=== PATIENT | male | born 1970 | race African-American/Black ===

== ENCOUNTER 2019-08-12 12:02 | Emergency (ER) | payer MEDICAID, OTHER ==
[~2019-08-12] VITALS: Ht 162.6 cm; Wt 60.0 kg
[2019-08-12] MEDS ORDERED: SODIUM CHLORIDE 0.9% 1,000 ML IV NR (14:30)
[2019-08-12 14:33] VITALS: BP 103/67
[2019-08-12] MEDS: KETOROLAC 15MG/ML VIAL IV NR ×2 (14:52→14:53)
== END 2019-08-12 14:59 | disposition home or self-care (01) ==
LOC: ER 12:02
DX: J06.9 Acute upper respiratory infection, unspecified (principal)
CPT/HCPCS: 71045; 96374; 99283; J1885

== ENCOUNTER 2020-12-28 05:27 | Emergency (ER) | payer MEDICAID ==
[~2020-12-28] VITALS: Ht 170.2 cm; Wt 69.0 kg
[2020-12-28] MEDS ORDERED: KETOROLAC 30MG/ML VIAL IV STA (06:10)
[2020-12-28] MEDS ORDERED: ASPIRIN 81MG TABLET PO ONE (06:15)
[2020-12-28 06:45] LABS: HEMATOCRIT. 43.9 % (42.0-52.0); HEMOGLOBIN. 14.7 g/dL (14.0-18.0); MEAN CORPUSCULAR HEMOGLOBIN 30.9 pg (28.0-32.0); MEAN CORPUSCULAR VOLUME 92.4 fL (80.0-94.0); PLATELET 287 x1000/uL (130-400); RED BLOOD CELL COUNT 4.75 mill/uL (4.7-6.1); RED CELL DISTRIBUTION WIDTH 13.6 % (11.6-14.6)
[2020-12-28 06:53] LABS: CHLORIDE 104 mEq/L (98-107)
[2020-12-28 06:59] LABS: ETHANOL BLOOD < 10 mg/dL
[2020-12-28 07:07] LABS: *AMPHETAMINES SCREEN URINE PRESUMTIVE POSITIVE (NEGATIVE); *BARBITURATES SCREEN URINE NEGATIVE (NEGATIVE); *BENZODIAZEPINES SCREEN URINE NEGATIVE (NEGATIVE); *COCAINE SCREEN URINE NEGATIVE (NEGATIVE); METHADONE URINE SCREEN NEGATIVE (NEGATIVE); OPIATES URINE SCREEN NEGATIVE (NEGATIVE); PHENCYCLIDINE URINE SCREEN NEGATIVE (NEGATIVE)
[2020-12-28 07:08] LABS: CANNABINOID URINE SCREEN PRESUMTIVE POSITIVE (NEGATIVE)
[2020-12-28] MEDS ORDERED: SODIUM CHLORIDE 0.9% 1,000 ML IV ONE (07:15)
[2020-12-28 07:25] LABS: PLATELET ESTIMATE NORMAL
[2020-12-28] MEDS ORDERED: BARIUM SULFATE(VOLUMEN) 450 ML ORAL.SUSP ONE (08:50)
[2020-12-28] MEDS ORDERED: DIATR MEGLU/DIATRIZOATE SOLN 30ML ONE (08:50)
[2020-12-28] MEDS ORDERED: ACETAMINOPHEN 325MG TABLET PO ONE (10:00)
[2020-12-28 11:03] VITALS: BP 107/55
== END 2020-12-28 11:04 | disposition home or self-care (01) ==
LOC: ER 05:27
DX: R07.9 Chest pain, unspecified (principal); F15.10 Other stimulant abuse, uncomplicated; F17.200 Nicotine dependence, unspecified, uncomplicated; Z71.6 Tobacco abuse counseling
CPT/HCPCS: 36415; 71045; 71275; 80053; 80305; 80320; 83690; 83880; 84484; 85025; 85379; 93005; 96374; 99285; 99406; J1885; Q9963; Z7610; G0480